=== PATIENT | female | born 1995 | race African-American/Black ===

== ENCOUNTER 2018-01-21 18:22 | Emergency (ER) | payer SELFPAY ==
[2018-01-21] MEDS ORDERED: IV NORMAL SALINE 1,000ML 1,000 ML IV ONE (18:45)
--- NOTE | 2018-01-21 18:47 | PHYS DOC ---
Past History Past Medical History: No Pertinent History Past Surgical History: No Surgical History Alcohol Use: None Drug Use: None Adult General Chief Complaint Chief Complaint: ABDOMINAL PAIN HPI HPI 22-year-old female presents with intermittent abdominal pain for the last 2 weeks. Patient states that the pain is sharp in her lower abdomen but only last for seconds. The pains come and go. She has also had some nausea and mild vomiting mostly in the morning. She is not currently nauseous or vomiting. She denies diarrhea. She is sexually active and denies control. Patient's last menstrual period was early December. She said that she took a test yesterday and it was positive. She denies fever, chills, chest pain, shortness of breath. Denies vaginal discharge or bleeding. Review of Systems Review of Systems Constitutional: Denies fever or chills [] Eyes: Denies change in visual acuity, redness, or eye pain [] HENT: Denies nasal congestion or sore throat [] Respiratory: Denies cough or shortness of breath [] Cardiovascular: No additional information not addressed in HPI [] GI: Abdominal pain, nausea, vomiting. Denies bloody stools or diarrhea [] : Denies dysuria or hematuria [] Musculoskeletal: Denies back pain or joint pain [] Integument: Denies rash or skin lesions [] Neurologic: Denies headache, focal weakness or sensory changes [] Endocrine: Denies polyuria or polydipsia [] All other systems were reviewed and found to be within normal limits, except as documented in this note. Current Medications Current Medications Current Medications Medications (Trade) Dose Ordered [facility] Start Time Stop Time Status Last Admin Dose Admin Sodium Chloride 1,000 ml @ 1,000 mls/hr 1X ONCE 01/21/18 18:45 01/21/18 19:44 Allergies Allergies Allergies Coded Allergies Type Severity Reaction Last Updated Verified No Known Drug Allergies 01/21/18 No Physical Exam Physical Exam Constitutional: Well developed, well nourished, no acute distress, non-toxic appearance. [] HENT: Normocephalic, atraumatic, bilateral external ears normal, oropharynx moist, no oral exudates, nose normal. [] Eyes: PERRLA, EOMI, conjunctiva normal, no discharge. [] Neck: Normal range of motion, no tenderness, supple, no stridor. [] Cardiovascular:Heart rate regular rhythm, no murmur [] Lungs & Thorax: Bilateral breath sounds clear to auscultation [] Abdomen: Bowel sounds normal, soft, no tenderness, no masses, no pulsatile masses. [] Skin: Warm, dry, no erythema, no rash. [] Back: No tenderness, no CVA tenderness. [] Extremities: No tenderness, no cyanosis, no clubbing, ROM intact, no edema. [] Neurologic: Alert and oriented X 3, normal motor function, normal sensory function, no focal deficits noted. [] Psychologic: Affect normal, judgement normal, mood normal. [] Current Patient Data Vital Signs Vital Signs Date Time Temp Pulse Resp B/P (MAP) Pulse Ox O2 Delivery O2 Flow Rate FiO2 01/21/18 18:37 98.6 110 22 99 Room Air EKG EKG [] Radiology/Procedures Radiology/Procedures [] Impressions: [place] [address] IMAGING REPORT Signed PATIENT: FLAVIO BUSTILLO ACCOUNT: [id number] : 1995 LOCATION: ER AGE: 22 SEX: F EXAM STATUS: PRE ER ORD. PHYSICIAN: TIFFANIE STAFFORD DO REASON: PAIN, UNSURE DATES, R/O ECTOPIC PROCEDURE: PREG 1ST TRIMESTER Ultrasound first semester HISTORY: and pain Sonographic examination of the was performed by transabdominal technique and multiple static images were obtained. There is a gestational sac in the uterus there is a yolk sac. There is a pole crown-rump length of 4.8 mm corresponds to 6 week 1 day gestational age. The heartbeat is confirmed at 122 bpm. Maternal ovaries appear normal normal blood flow. IMPRESSION: 1. Single live intrauterine measuring 6 weeks 2 days gestational age with estimated date confinement of September 14, 2018. 2. No abnormality identified. A short-term follow-up study could be performed if clinically indicated otherwise a structural survey would be performed at 18-21 weeks gestational age. Electronically signed by: Richard Carey III, MD (01/21/2018 9:54 PM) [facility] DICTATED AND SIGNED BY: RICHARD CAREY III, MD DATE: 01/21/18 7946 CC: TIFFANIE STAFFORD DO ~ Course & Med Decision Making Course & Med Decision Making Pertinent Labs and Imaging studies reviewed. (See chart for details) The patient has a positive urine test. I ordered a quantitative serum which was also positive and shows her to be 6-7 weeks. Given her abdominal pain , no ultrasound was performed to rule out ectopic. Ultrasound did show a single live intrauterine fetus of roughly 6 weeks 2 days. I informed the patient of these results. She is stable for discharge at this time. [] Dragon Disclaimer Dragon Disclaimer This electronic medical record was generated, in whole or in part, using a voice recognition dictation system. TIFFANIE STAFFORD DO Jan 21, 2018 18:47
[2018-01-21 19:18] LABS: BASO % 1 % (0-3); EOS # 0.1 x10^3/uL (0.0-0.7); EOS % 2 % (0-3); HEMATOCRIT 35.8 % (36.0-47.0); HEMOGLOBIN 12.5 g/dL (12.0-15.5); LYMPH # 2.6 x10^3/uL (1.0-4.8); LYMPH % 36 % (24-48); MEAN CORPUSCULAR HEMOGLOBIN 30 pg (25-35); MEAN CORPUSCULAR HGB CONC 35 g/dL (31-37); MEAN CORPUSCULAR VOLUME 85 fL (79-100); MONO # 0.8 x10^3/uL (0.0-1.1); MONO % 11 % (0-9); NEUT # 3.7 x10^3uL (1.8-7.7); NEUT % 51 % (31-73); PLATELET COUNT 275 x10^3/uL (140-400); RED CELL DISTRIBUTION WIDTH 13.2 % (11.5-14.5); WHITE BLOOD COUNT 7.2 x10^3/uL (4.0-11.0)
[2018-01-21 19:28] LABS: ALBUMIN 3.8 g/dL (3.4-5.0); ALBUMIN/GLOBULIN RATIO 1.2 (1.0-1.7); CALCIUM 9.3 mg/dL (8.5-10.1); CREATININE 0.8 mg/dL (0.6-1.0); GFR 89.7; POTASSIUM 3.6 mmol/L (3.5-5.1); TOTAL BILIRUBIN 0.4 mg/dL (0.2-1.0)
[2018-01-21 19:55] LABS: BACTERIA,URINE 0 /HPF (0-FEW); BILIRUBIN,URINE NEG (NEG); CLARITY,URINE HAZY; COLOR,URINE YELLOW; GLUCOSE,URINE NEG (NEG); NITRITE,URINE NEG (NEG); RBC,URINE OCC /HPF (0-2); SQUAMOUS EPITHELIAL CELL,UR FEW /LPF; UROBILINOGEN,URINE 0.2 mg/dL (0.2 mg/dL)
[2018-01-21 21:35] VITALS: BP 111/68
--- NOTE | 2018-01-21 21:58 | RAD ---
Ultrasound first semester HISTORY: and pain Sonographic examination of the was performed by transabdominal technique and multiple static images were obtained. There is a gestational sac in the uterus there is a yolk sac. There is a pole crown-rump length of 4.8 mm corresponds to 6 week 1 day gestational age. The heartbeat is confirmed at 122 bpm. Maternal ovaries appear normal normal blood flow. IMPRESSION: 1. Single live intrauterine measuring 6 weeks 2 days gestational age with estimated date confinement of September 14, 2018. 2. No abnormality identified. A short-term follow-up study could be performed if clinically indicated otherwise a structural survey would be performed at 18-21 weeks gestational age. Electronically signed by: Rudy De La Cruz III, MD (01/21/2018 9:54 PM) [facility]
== END 2018-01-21 22:40 | disposition home or self-care (01) ==
LOC: ER 18:22
DX: O26.891 Other specified pregnancy related conditions, first trimester (principal); R10.30 Lower abdominal pain, unspecified; O21.9 Vomiting of pregnancy, unspecified; Z3A.00 Weeks of gestation of pregnancy not specified
CPT/HCPCS: 36415; 76801; 80053; 81001; 81025; 84702; 85025; 99285-25; J7030